=== PATIENT | female | born 1980 | race African-American/Black ===

== ENCOUNTER 2022-03-22 13:38 | Observation (INO) | payer OTHER ==
[2022-03-22 14:59] LABS: INR 1.19 (0.83-1.09); PROTHROMBIN TIME (PATIENT) 13.7 SEC (9.7-13.0)
[2022-03-22 15:02] LABS: ACTIVATED PTT 33.4 SECONDS (25.2-36.5)
[2022-03-22 15:09] LABS: HEMATOCRIT 36.4 % (32.4-45.2); HEMOGLOBIN 12.5 G/dL (10.7-15.3); MCH 29.3 pg (25.7-33.7); MCHC 34.4 g/dl (32.0-36.0); MEAN CELL VOLUME 85.3 fl (80-96); MEAN PLT VOLUME 9.2 fl (7.5-11.1); PLATELET COUNT 240.3 10^3/uL (134-434); RBC 4.27 10^6/uL (3.60-5.2); RDW 14.3 % (11.6-15.6); WHITE BLOOD COUNT 6.3 10^3/uL (4.0-10.8)
[2022-03-22 15:42] LABS: ALBUMIN 4.5 g/dl (3.4-5.0); BILIRUBIN,TOTAL 0.8 mg/dl (0.2-1); CALCIUM 9.9 mg/dl (8.5-10); CREATININE 0.8 mg/dl (0.55-1.3)
[2022-03-22] MEDS ORDERED: ACETAMINOPHEN 1000 MG/100 ML BAG IVPB ONE (16:13)
[2022-03-22] MEDS ORDERED: ACETAMINOPHEN INJECTION 100 ML IVPB ONE (16:14)
[2022-03-22 16:38] LABS: PLATELET ESTIMATE ADEQUATE
[2022-03-22] MEDS ORDERED: FAMOTIDINE 20 MG/50 ML IVPB 20 MG in PREMIX 50 IVPB ONE (18:05)
[2022-03-22] MEDS ORDERED: MAG HYDROX/AL HYDROX/SIMETH -MYLANTA- ORAL SUSPENSION PO ONE (18:05)
[2022-03-22] MEDS ORDERED: MAG HYDROX/AL HYDROX/SIMETH 30 ML UNIT-DOSE CUP ONE (18:23)
[2022-03-22] MEDS ORDERED: FAMOTIDINE 20 MG/50 ML IVPB 20 MG/50 ML MG IVPB ONE (18:23)
[2022-03-22] MEDS ORDERED: ASPIRIN 81 MG CHEWABLE TABLETS ONE (18:37)
[2022-03-22 19:07] LABS: LIPASE 97 U/L (73-393)
[2022-03-22 20:57] VITALS: BMI 27.4
[2022-03-22] MEDS ORDERED: KETOROLAC TROMETHAMINE 15 MG/ML VIAL IVPUSH ONE (21:27)
[2022-03-22] MEDS ORDERED: DOCUSATE SODIUM 100 MG CAPSULE (FP) PO PRN (21:32)
[2022-03-22 21:52] LABS: MAGNESIUM 2.2 mg/dL (1.8-2.4)
[2022-03-23 08:19] LABS: CREATININE 0.8 mg/dl (0.55-1.3)
[2022-03-23] MEDS ORDERED: amLODIPine BESYLATE 5 MG TABLET (FP) PO SCH (10:00)
[2022-03-23] MEDS ORDERED: VALSARTAN 80 MG TABLET PO SCH (10:00)
[2022-03-23] MEDS ORDERED: KETOROLAC TROMETHAMINE 15 MG/ML VIAL IVPUSH PRN (10:07)
[2022-03-23 11:00] LABS: BASO % 1.2 % (0-2.0); EOS % 2.4 % (0-4.5); HEMATOCRIT 36.5 % (32.4-45.2); HEMOGLOBIN 11.7 GM/dL (10.7-15.3); LYMPH % 48.5 % (8-40); MCH 27.3 pg (25.7-33.7); MCHC 31.9 g/dl (32.0-36.0); MEAN CELL VOLUME 85.3 fl (80-96); MEAN PLT VOLUME 9.7 fl (7.5-11.1); MONO % 10.4 % (3.8-10.2); NEUT % 37.5 % (42.8-82.8); PLATELET COUNT 242 10^3/uL (134-434); RBC 4.28 M/mm3 (3.60-5.2); RDW 13.5 % (11.6-15.6); WHITE BLOOD COUNT 4.9 K/mm3 (4.0-10.0)
[2022-03-23 13:38] VITALS: RESP 16
[2022-03-23 14:02] VITALS: TEMP 98.6
[2022-03-23 14:04] VITALS: BP 112/62; PULSE 78
== END 2022-03-23 17:35 | disposition home or self-care (01) ==
LOC: FER 13:38 → FM/S 18:45
PROVIDERS: ADMIT Internal Medicine; ATTEND Nurse Practitioner Acute Care
PROC: 3E033NZ Introduction of Analgesics, Hypnotics, Sedatives into Peripheral Vein, Percutaneous Approach (ICD-10-PCS; principal; 2022-03-22)
PROC: 3E033GC Introduction of Other Therapeutic Substance into Peripheral Vein, Percutaneous Approach (ICD-10-PCS; 2022-03-22)
PROC: 3E0333Z Introduction of Anti-inflammatory into Peripheral Vein, Percutaneous Approach (ICD-10-PCS; 2022-03-22)
DX: I10 Essential (primary) hypertension (principal); R07.9 Chest pain, unspecified; Z29.8 Encounter for other specified prophylactic measures
CPT/HCPCS: 0241U-QW; 36415; 71045-TC-FY; 71275-TC; 74174-TC; 80048; 80053; 83690; 83735; 84484; 84703; 85025; 85610; 85651; 85730; 86140; 86850; 86900; 86901; 93005; 93306-TC; 96365; 96375; 96376; 99285-25; G0378